=== PATIENT | female | born 1960 | race Caucasian/White ===

== ENCOUNTER 2017-12-27 11:21 | Emergency (ER) | payer MEDICAID, SELFPAY ==
[2017-12-27 11:35] VITALS: BP 101/79; PULSE 98; RESP 18; TEMP 36.8; O2SAT 99; BMI 22.6
--- NOTE | 2017-12-27 11:36 | XR_ITS ---
XR chest 2V HISTORY: ITS.REASON: COUGH AND CHEST CONGESTION ORDERING PHYSICIAN: Aniyah Marcus PATIENT AGE: 57 years COMPARISON: 04/10/2017 FINDINGS: The cardiomediastinal silhouette and pulmonary vascularity are within normal limits. 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 No lobar consolidation or collapse. Mild degenerative change thoracic spine. IMPRESSION: COPD, no change with no acute finding
--- NOTE | 2017-12-27 11:46 | HMH.EDUTC ---
[facility] [place] Clinical Impression: Upper respiratory infection Qualifiers: URI type: unspecified URI Qualified Code(s): J06.9 - Acute upper respiratory infection, unspecified Disposition: Home, Self-Care Condition on Discharge: Good Instructions: Sinusitis, DI for Sinusitis, DI for Cough -- Adult, DI for Nasal Congestion Additional Instructions: Start antibiotic. Sinus infections may take 2-3 days to notice much improvement so be sure to use conservative measures as discussed for symptoms Flonase 2 spray in each nostril daily to help with nasal congestion, sinus an ear pressure/inflammation Lots of Fluids Sleep elevated Humidifer/vaporizer Prescriptions: Albuterol Sulfate [Albuterol HFA Inhaler] 2 puffs IH Q6HP PRN #1 inh PRN Reason: Shortness Of Breath Or Wheezing Benzonatate [Tessalon Perle 100mg Cap] 100 mg PO TID PRN #30 cap PRN Reason: Cough Cefdinir [Omnicef 300mg Capsule] 300 mg PO BID #20 cap predniSONE [Prednisone 20mg Tab] 20 mg PO BID #10 tab Forms: Work/School Release Time of Disposition: 12:22 Medical Decision Making - Medical Records Medical records reviewed: Yes: I reviewed the patient's medical records. Vital Signs: 12/27/17 11:35 Temperature 98.2 F Temperature Source Temporal Artery Scan Pulse Rate [Right] 98 H Respiratory Rate 18 Blood Pressure [Right Arm] 101/79 Blood Pressure Mean [Right Arm] 86 Blood Pressure Source [Right Arm] Automatic Cuff Blood Pressure Position [Right Arm] Sitting 02 Sat by Pulse Oximetry 99 Oxygen Delivery Method Room Air Orders (Tests/Meds): ORDERS Category Date Time Status CXR 2 view (NOT portable) [XR chest 2V] Stat Exams 12/27/17 11:36 Taken - Radiology Data #1 Image(s): Chest Image Reviewed: Yes I reviewed the patient's radiology image, Yes I discussed the image results w/the radiologist Preliminary Findings: No Infiltrates Seen - Vince Inquiry Pt receiving controlled substance: No Vince was queried for this patient: No - Reevaluation(s) Time: 12:03 (Requested ER physician to look at patients chest xray awaiting call back ) [facility] [place] - General Stated complaint: drainage, cough, yellow mucas, sneezing, Mode of Arrival: Ambulatory Source of Information: Patient Limitations: No Limitations Description of Symptoms (Recalled from Triage Doc. by RN): RECENT UPPER RESPIRATORY INF, WORSE NOW WITH COUGH HEENT Symptoms (Recalled from RN notes): Yes Resp Symptoms (Recalled from RN notes): Yes Skin Symptoms (Recalled from RN notes): No MS Symptoms (Recalled from RN notes): No Functional Status (Recalled from RN notes): N - History of Present Illness Provider Complaint: Patient states that she was recently seen and treated for upper respiratory infection about 3 weeks ago States that she has continued to get worse States that she is having sinus pain and pressure along with drainage and cough State that her throat feels irritated from all the coughing - Related Data Previous Rx's Medication Instructions Recorded Albuterol Sulfate [Albuterol HFA 2 puffs IH Q6HP PRN #1 inh 12/27/17 Inhaler] Benzonatate [Tessalon Perle 100mg 100 mg PO TID PRN #30 cap 12/27/17 Cap] Cefdinir [Omnicef 300mg Capsule] 300 mg PO BID #20 cap 12/27/17 predniSONE [Prednisone 20mg 20 mg PO BID #10 tab 12/27/17 Tab] Allergies Allergy/AdvReac Type Severity Reaction Status Date / Time Penicillins [PENICILLINS] Allergy Intermediate I-HIVES Verified 12/27/17 11:46 - Worker's Comp Is this a Worker's Comp case?: No [facility] History I have reviewed the patient's past medical history: Yes - *Social History Smoking Status: Current every day smoker Tobacco Type: cigarettes Alcohol Intake: never - Psychiatric History Expresses thoughts of harming self/others: None Suicide Plan Description: No Plan ROS Obtained: Yes All systems reviewed & no additional complaints - ENT Ears, Nose, Mouth, and Throat: Reports sinus pain, Rep
--- NOTE | 2017-12-27 12:00 | ED_ITS ---
[place] Disposition Clinical Impression: Upper respiratory infection Qualifiers: URI type: unspecified URI Qualified Code(s): J06.9 - Acute upper respiratory infection, unspecified Disposition: Home, Self-Care Condition on Discharge: Good Instructions: Sinusitis, DI for Sinusitis, DI for Cough -- Adult, DI for Nasal Congestion Additional Instructions: Start antibiotic. Sinus infections may take 2-3 days to notice much improvement so be sure to use conservative measures as discussed for symptoms Flonase 2 spray in each nostril daily to help with nasal congestion, sinus an ear pressure/inflammation Lots of Fluids Sleep elevated Humidifer/vaporizer Prescriptions: Albuterol Sulfate [Albuterol HFA Inhaler] 2 puffs IH Q6HP PRN #1 inh PRN Reason: Shortness Of Breath Or Wheezing Benzonatate [Tessalon Perle 100mg Cap] 100 mg PO TID PRN #30 cap PRN Reason: Cough Cefdinir [Omnicef 300mg Capsule] 300 mg PO BID #20 cap predniSONE [Prednisone 20mg Tab] 20 mg PO BID #10 tab Forms: Work/School Release Time of Disposition: 12:22 Medical Decision Making - Medical Records Medical records reviewed: Yes: I reviewed the patient's medical records. Vital Signs: 12/27/17 11:35 Temperature 98.2 F Temperature Source Temporal Artery Scan Pulse Rate [Right] 98 H Respiratory Rate 18 Blood Pressure [Right Arm] 101/79 Blood Pressure Mean [Right Arm] 86 Blood Pressure Source [Right Arm] Automatic Cuff Blood Pressure Position [Right Arm] Sitting 02 Sat by Pulse Oximetry 99 Oxygen Delivery Method Room Air Orders (Tests/Meds): ORDERS Category Date Time Status CXR 2 view (NOT portable) [XR chest 2V] Stat Exams 12/27/17 11:36 Taken - Radiology Data #1 Image(s): Chest Image Reviewed: Yes I reviewed the patient's radiology image, Yes I discussed the image results w/the radiologist Preliminary Findings: No Infiltrates Seen - Vince Inquiry Pt receiving controlled substance: No Vince was queried for this patient: No - Reevaluation(s) Time: 12:03 (Requested ER physician to look at patients chest xray awaiting call back ) [place] HPI - General Stated complaint: drainage, cough, yellow mucas, sneezing, Mode of Arrival: Ambulatory Source of Information: Patient Limitations: No Limitations Description of Symptoms (Recalled from Triage Doc. by RN): RECENT UPPER RESPIRATORY INF, WORSE NOW WITH COUGH HEENT Symptoms (Recalled from RN notes): Yes Resp Symptoms (Recalled from RN notes): Yes Skin Symptoms (Recalled from RN notes): No MS Symptoms (Recalled from RN notes): No Functional Status (Recalled from RN notes): N - History of Present Illness Provider Complaint: Patient states that she was recently seen and treated for upper respiratory infection about 3 weeks ago States that she has continued to get worse States that she is having sinus pain and pressure along with drainage and cough State that her throat feels irritated from all the coughing - Related Data Previous Rx's Medication Instructions Recorded Albuterol Sulfate [Albuterol HFA 2 puffs IH Q6HP PRN #1 inh 12/27/17 Inhaler] Benzonatate [Tessalon Perle 100mg 100 mg PO TID PRN #30 cap 12/27/17 Cap] Cefdinir [Omnicef 300mg Capsule] 300 mg PO BID #20 cap 12/27/17 predniSONE [Prednisone 20mg 20 mg PO BID #10 tab 12/27/17 Tab] Allergies
== END 2017-12-27 12:37 | disposition home or self-care (01) ==
PROVIDERS: Emergency Provider Nurse Practitioner; Family Provider Emergency Medicine
DX: J06.9 Acute upper respiratory infection, unspecified (principal); F17.210 Nicotine dependence, cigarettes, uncomplicated; Z88.0 Allergy status to penicillin
CPT/HCPCS: 71046; 99202

== ENCOUNTER → 2018-01-30 09:41 | Outpatient (REF) | payer MEDICAID, SELFPAY ==
[2018-01-30 13:40] LABS: Basophils % 0.5 % (0.1-2.0); Eosinophils # 0.1 K/mm3 (0.0-0.4); Hematocrit 48.5 % (37.0-47.0); Hemoglobin 15.8 g/dL (12.2-16.2); Lymphocytes # 2.5 K/mm3 (0.7-4.5); Lymphocytes % 32.8 K/mm3 (10-50); Mean Corpuscular HGB Conc 32.6 g/dL (31.8-35.4); Mean Corpuscular Hemoglobin 31.8 pg (27.0-31.2); Mean Corpuscular Volume 97.5 fl (81-99); Mean Platelet Volume 8.6 fl (7.4-10.4); Monocytes # 0.6 K/mm3 (0.1-1.0); Monocytes % 8.1 % (1.7-9.3); Neutrophils # 4.3 K/mm3 (1.8-7.8); Neutrophils % 57.5 % (37.0-80.0); Platelet Count 294 K/mm3 (142-424); Red Blood Count 4.97 M/mm3 (4.20-5.40); Red Cell Distribution Width 12.9 % (11.5-17.5); White Blood Count 7.5 K/mm3 (4.8-10.8)
[2018-01-30 14:28] LABS: Alanine Aminotransferase 34 U/L (12-78); Albumin Level 4.3 gm/dL (3.4-5.0); Albumin/Globulin Ratio 1.2 (1.1-1.8); Alkaline Phosphatase 88 U/L (46-116); Anion Gap 12.7 mEq/L (5-15); Aspartate Amino Transferase 18 U/L (15-37); Bilirubin,Total 0.2 mg/dL (0.2-1.0); Blood Urea Nitrogen 9 mg/dL (7-18); Calcium 9.6 mg/dL (8.5-10.1); Carbon Dioxide 31 mmol/L (21.0-32.0); Chloride 99 mmol/L (98-107); Chol/HDL Ratio 3.1 (1-3.5); Cholesterol 246 mg/dL (140-200); Creatinine,Serum 0.62 mg/dL (0.55-1.02); Estimated Glomerular Filt Rate 100 ml/min (>60); Free T4 (Free Thyroxine) 0.97 ng/dl (0.76-1.46); GFR (African American) 121 ML/MIN (>60); Globulin 3.6 gm/dl (1.3-3.2); Glucose 96 mg/dL (74-106); HDL Cholesterol 80 mg/dL (29-89); LDL Cholesterol 135 mg/dL (0-130); Potassium 4.7 mmoL/L (3.5-5.1); Sodium 138 mmol/L (136-145); Thyroid Stimulating Hormone 1.96 uIU/ml (0.358-3.740); Total Protein,Serum 7.9 gm/dL (6.4-8.2); Triglycerides 157 mg/dL (30-200); VLDL Cholesterol 31 mg/dL (0-40)
== END ==
LOC: LAB 09:41
PROVIDERS: Visit Provider Emergency Medicine
DX: M81.0 Age-related osteoporosis without current pathological fracture (principal)
CPT/HCPCS: 80053; 80061; 82652; 84439; 84443; 85025

== ENCOUNTER → 2018-02-16 16:50 | Outpatient (CLI) | payer MEDICAID, SELFPAY ==
--- NOTE | 2018-02-16 16:51 | MM_ITS ---
MM Dig screening mamm BI w/CAD CAD Screening ORDERING PHYSICIAN : Gilbert Johnson MD PATIENT AGE: 57 years GENDER: Female COMPARISON: BASELINe study with no previous mammograms available. . INDICATION: : 57-year-old. No hormones. No new complaints. Baseline study. TECHNIQUE: Standard CC and MLO images were obtained. R2 CAD reviewed. FINDINGS moderate breast density. Scattered fibroglandular elements bilaterally. The mild to moderate asymmetry but no dominant mass nor suspicious calcifications either breast. RIGHT BREAST:No focal area of concern. . slightly more evident glandular tissue towards the lateral right breast. However this seems to dissipates move it from the cc view to the MLO view with no persistent focal area of concern. Would recommend bilateral follow-up in one year for ongoing evaluation LEFT BREAST: Asymmetric area of density at the inferior left breast most likely is fibroglandular tissue but noted. There is also a 5 mm small round ovoid density at the deep breast. Likely benign intramammary lymph node or cyst. .. IMPRESSION: ======== Baseline mammogram. 1. Left Breast.: Suggest 6 month follow-up to confirm stable baseline character & to confirm stability of following most likely benign features: ... Asymmetric density inferior left breast which is most likely fibroglandular tissue .... Small 5 mm round ovoid density at deep superior breast. 2. Right Breast....: No focal areas of concern follow-up in one year 3. Moderate dense inhomogeneous breast with Mild asymmetry.. BI-RADS Category: 3 Benign Finding Short Term Follow-up RECOMMENDED FOLLOW-UP: 6M - 6 MONTH FOLLOW-UP (A letter has been sent to the patient regarding results of the study.) In
== END ==
PROVIDERS: Family Provider Emergency Medicine; PCP Emergency Medicine; Visit Provider Emergency Medicine
DX: Z12.31 Encounter for screening mammogram for malignant neoplasm of breast (principal)
CPT/HCPCS: 77067

== ENCOUNTER → 2018-02-21 09:11 | Outpatient (CLI) | payer MEDICAID, SELFPAY ==
--- NOTE | 2018-02-21 09:16 | XR_ITS ---
XR DEXA axial skeleton HISTORY: ITS.REASON: Post Menopausal ORDERING PHYSICIAN: Gilbert Johnson MD PATIENT AGE: 57 years COMPARISON: None FINDINGS: L1 L4 density is 1.005 with a T score of -1.5 consistent with osteopenia. The BMD measured at the femur total Right is 0.661 g/cm squared with a T score of -2.8 . This is considered Osteoporotic according to the World Health Organization criteria. Fracture risk is high. Treatment is advised. IMPRESSION: Osteoporosis of the hips. Treatment is advised. Recommend follow-up exam January 2019
[2018-02-21 11:00] VITALS: PULSE 96; PULSE 99
== END ==
PROVIDERS: Family Provider Emergency Medicine; PCP Emergency Medicine; Visit Provider Emergency Medicine
DX: M81.0 Age-related osteoporosis without current pathological fracture (principal); R06.02 Shortness of breath; Z12.31 Encounter for screening mammogram for malignant neoplasm of breast
CPT/HCPCS: 77080; 94060; 94640

== ENCOUNTER → 2018-08-29 12:50 | Outpatient (CLI) | payer MEDICAID, SELFPAY ==
--- NOTE | 2018-08-29 12:52 | MM_ITS ---
MM Dig mamm DX unilat LT CAD, US breast LT complete INDICATION: Follow-up abnormal mammogram ORDERING PHYSICIAN: KASIA Salinas PATIENT AGE: 57 years COMPARISON: 02/16/2018 TECHNIQUE: Standard images performed with problem-solving views and left breast ultrasound FINDINGS: There is average fibroglandular tissue. Benign-appearing calcifications are present. Asymmetric density is once again noted involving the lateral aspect of the left breast. This area does appear to compress out as fibroglandular tissue. There is persistent asymmetric density in the inferior aspect of the left breast not significant changed when compared to the previous exam with some interspersed fat. A benign-appearing 4 mm nodule is present in the mid aspect of the left breast. No malignant appearing mass or malignant appearing microcalcification is evident. Left breast ultrasound: At 2:00 there is a 4 mm hypoechoic nodule probably related to small cyst. At 8:00 there is a 4 x 3 mm hypoechoic nodule consistent with a cyst. No suspicious nodules evident by ultrasound. IMPRESSION: Benign findings. No convincing evidence of malignancy. No significant change asymmetric density in the inferior aspect of the left breast felt to be related to fibroglandular tissue Recommend continued screening mammogram in January 2019. BI-RADS Category: 2 Benign Finding(s) RECOMMENDED FOLLOW-UP: 6M - 6 MONTH FOLLOW-UP (A letter has been sent to the patient regarding results of the study.)
== END ==
PROVIDERS: PCP Emergency Medicine; Visit Provider Physician Assistant
DX: R92.8 Other abnormal and inconclusive findings on diagnostic imaging of breast (principal)
CPT/HCPCS: 77065

== ENCOUNTER → 2018-08-30 09:07 | Outpatient (CLI) | payer MEDICAID, SELFPAY | PROVIDERS: Family Provider Emergency Medicine; PCP Emergency Medicine; Visit Provider Physician Assistant | DX: R92.8 Other abnormal and inconclusive findings on diagnostic imaging of breast (principal) | CPT/HCPCS: 76641 ==

== ENCOUNTER → 2019-04-10 18:09 | Outpatient (CLI) | payer MEDICAID, SELFPAY ==
[2019-04-10 18:40] LABS: Basophils % 0.6 % (0.1-2.0); Eosinophils # 0.1 K/mm3 (0.0-0.4); Eosinophils % 0.9 % (0.1-12.0); Hematocrit 49.6 % (37.0-47.0); Hemoglobin 16.8 g/dL (12.2-16.2); Lymphocytes # 2.5 K/mm3 (0.7-4.5); Mean Corpuscular Hemoglobin 32.7 pg (27.0-31.2); Mean Corpuscular Volume 96.3 fl (81-99); Mean Platelet Volume 8.3 fl (7.4-10.4); Monocytes # 0.4 K/mm3 (0.1-1.0); Monocytes % 6.7 % (1.7-9.3); Neutrophils % 49.9 % (37.0-80.0); Platelet Count 247 K/mm3 (142-424); Red Blood Count 5.15 M/mm3 (4.20-5.40); Red Cell Distribution Width 12.9 % (11.5-17.5); White Blood Count 5.9 K/mm3 (4.8-10.8)
[2019-04-10 19:16] LABS: Alanine Aminotransferase 60 U/L (12-78); Albumin Level 4.2 gm/dL (3.4-5.0); Albumin/Globulin Ratio 1.1 (1.1-1.8); Alkaline Phosphatase 77 U/L (46-116); Anion Gap 13.5 mEq/L (5-15); Aspartate Amino Transferase 32 U/L (15-37); Bilirubin,Total 0.4 mg/dL (0.2-1.0); Blood Urea Nitrogen 11 mg/dL (7-18); Carbon Dioxide 30 mmol/L (21.0-32.0); Chloride 100 mmol/L (98-107); Chol/HDL Ratio 3.2 (1-3.5); Cholesterol 200 mg/dL (140-200); Creatinine,Serum 0.67 mg/dL (0.55-1.02); Estimated Glomerular Filt Rate 91 ml/min (>60); GFR (African American) 110 ML/MIN (>60); Globulin 3.9 gm/dl (1.3-3.2); Glucose 95 mg/dL (74-106); HDL Cholesterol 62 mg/dL (29-89); LDL Cholesterol 105 mg/dL (0-130); Potassium 4.5 mmoL/L (3.5-5.1); Sodium 139 mmol/L (136-145); T4 (Thyroxine) 8.8 ug/dl (4.7-13.3); Total Protein,Serum 8.1 gm/dL (6.4-8.2); Triglycerides 166 mg/dL (30-200); VLDL Cholesterol 33 mg/dL (0-40)
[2019-04-10 19:19] LABS: C-Reactive Protein < 0.2 mg/L (0.0-0.9); Erythrocyte Sedimentation Rate 7 mm/hr (0-30)
[2019-04-12 10:17] LABS: Anti-Centromere B Antibodies <0.2 AI (0.0-0.9); Anti-Jo-1 <0.2 AI (0.0-0.9); Anti-Smith Antibody <0.2 AI (0.0-0.9); Antichromatin Antibodies <0.2 AI (0.0-0.9); Antiscleroderma-70 Antibodies <0.2 AI (0.0-0.9); RNP Antibodies 0.3 AI (0.0-0.9); Sjogren's Anti-SS-A <0.2 AI (0.0-0.9); Sjogren's Anti-SS-B 0.2 AI (0.0-0.9)
[2019-04-12 10:40] LABS: Anti-DNA (DS) Ab Qn 1 IU/mL (0-9); RA Latex Turbid. 10.1 IU/mL (0.0-13.9); Vitamin D 25 Hydroxy 43.5 ng/mL (30.0-100.0)
[2019-04-13 18:05] LABS: Anti-Cyclic Citrullinated Pept 6 units (0-19)
== END ==
PROVIDERS: Visit Provider Nurse Practitioner Family
DX: E55.9 Vitamin D deficiency, unspecified (principal); M19.90 Unspecified osteoarthritis, unspecified site
CPT/HCPCS: 80053; 80061; 82652; 84436; 84443; 85025; 85651; 86140; 86200; 86225; 86235; 86431

== ENCOUNTER → 2019-05-08 12:31 | Outpatient (CLI) | payer MEDICAID, SELFPAY ==
--- NOTE | 2019-05-08 12:34 | MM_ITS ---
MM Dig mamm DX unilat LT CAD No malignant appearing mass or malignant appearing microcalcification. INDICATION: ORDERING PHYSICIAN: Josue Cristina APRN PATIENT AGE: 58 years COMPARISON: 02/16/2018, 08/29/2018. TECHNIQUE: Standard images performed along with spot compression views FINDINGS: Average fibroglandular tissue. No malignant appearing mass or malignant appearing microcalcification. Asymmetric density was noted in the lateral periareolar region on the left not significant change] appear to compress out as fibroglandular tissue. Asymmetric density also noted in the inferior left breast not significant changed somewhat less apparent. There are bilateral benign-appearing calcifications. Persistent nodular opacity is present in the periareolar region on the right on the MLO view but not readily apparent on the craniocaudal view having a similar appearance compared to screening exam of 02/16/2018 and may very well be due to overlying summation artifact as it is seen only on one view. IMPRESSION: Benign findings. No evidence of malignancy with no significant change BI-RADS Category: 2 Benign Finding(s) RECOMMENDED FOLLOW-UP: 1YR - 1 YEAR FOLLOW-UP (A letter has been sent to the patient regarding results of the study.)
== END ==
PROVIDERS: PCP Nurse Practitioner Family; Visit Provider Nurse Practitioner Family
DX: R92.8 Other abnormal and inconclusive findings on diagnostic imaging of breast (principal)
CPT/HCPCS: 77066

== ENCOUNTER → 2019-12-18 11:57 | Outpatient (CLI) | payer MEDICARE, MEDICAID, SELFPAY ==
--- NOTE | 2019-12-18 12:05 | XR_ITS ---
PROCEDURE: XR FOREARM RT 2V CLINICAL INDICATION: dog bite/possible fracture COMPARISON: No exams were available for comparison FINDINGS: There is a nondisplaced fracture of the distal ulna without significant displacement or angulation. There is demineralization without other fracture. 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 No erosive changes evident. Other findings:None. IMPRESSION: Fracture distal ulna. Dictated by: Kevin Winn 12/18/2019 13:17 Electronically signed by Kevin Winn in [place] 12/18/2019 13:17
== END ==
PROVIDERS: PCP Emergency Medicine; Visit Provider Orthopaedic Surgery
DX: S51.851A Open bite of right forearm, initial encounter (principal); W54.0XXA Bitten by dog, initial encounter
CPT/HCPCS: 73090

== ENCOUNTER → 2020-01-22 12:11 | Outpatient (CLI) | payer MEDICARE, MEDICAID, SELFPAY ==
--- NOTE | 2020-01-22 12:31 | XR_ITS ---
PROCEDURE: XR FOREARM RT 2V CLINICAL INDICATION: RT forearm fracture fu, OUT OF CAST Follow-up fracture COMPARISON: XR FOREARM RT 2V from 12/18/2019 FINDINGS: Healing nondisplaced distal ulnar fracture noted with developing callus formation. No change minimal dorsal angulation of the distal fracture fragment IMPRESSION: Healing distal ulnar fracture Dictated by: Ryan Saavedra MD 01/22/2020 16:43 Electronically signed by Ryan Saavedra MD in [place] 01/22/2020 16:43
== END ==
PROVIDERS: PCP Emergency Medicine; Visit Provider Orthopaedic Surgery
DX: S52.601B Unspecified fracture of lower end of right ulna, initial encounter for open fracture type I or II (principal)
CPT/HCPCS: 73090